=== PATIENT | male | born 1960 | race African-American/Black ===

== ENCOUNTER 2021-07-25 16:38 | Inpatient (IN) | payer OTHER ==
[2021-07-25] MEDS ORDERED: MAG HYDROX/AL HYDROX/SIMETH 30 ML UNIT-DOSE CUP PO PRN (22:38)
[2021-07-25] MEDS ORDERED: MAGNESIUM CITRATE 300 ML BOTTLE PO PRN (22:38)
[2021-07-25] MEDS ORDERED: guaiFENesin 200 MG/10 ML 10 ML UNIT-DOSE CUPS PO PRN (22:38)
[2021-07-25] MEDS ORDERED: P-EPHED 60MG/TRIPROLIDI 2.5MG TABLET PO PRN (22:38)
[2021-07-25] MEDS ORDERED: MAGNESIUM HYDROX 2400MG/30ML ORAL SUSPENSION 30 ML CUP PO PRN (22:38)
[2021-07-25] MEDS ORDERED: ACETAMINOPHEN 325 MG TABLET (FP) PO PRN (22:38)
[2021-07-25] MEDS ORDERED: IBUPROFEN 400 MG TABLET (FP) PO PRN (22:38)
[2021-07-25 22:51] VITALS: BMI 35.1
[2021-07-26] MEDS ORDERED: TUBERCULIN PPD 5 TU/0.1ML VIAL ID ONE (00:26)
[2021-07-26] MEDS: MELATONIN 5 MG TABLETS PO SCH ×2 (00:31→21:08)
[2021-07-26] MEDS ORDERED: METOPROLOL TARTRATE 50 MG TABLET (FP) PO ONE (00:48)
[2021-07-26] MEDS: ALBUTEROL SO4 HFA INHALER IH SCH ×4 (01:57→21:09)
[2021-07-26] MEDS: metFORMIN HCL 500 MG TABLET (FP) PO SCH ×2 (06:17→17:22)
[2021-07-26] MEDS: TAMSULOSIN HCL 0.4 MG CAP PO SCH (08:40)
[2021-07-26] MEDS ORDERED: metFORMIN HCL 500 MG TABLET (FP) PO SCH (10:00)
[2021-07-26] MEDS: LOPERAMIDE HCL 2 MG CAPSULE PO PRN (10:05)
[2021-07-26 10:51] LABS: HEMATOCRIT 43.1 % (35.4-49); HEMOGLOBIN 14.6 GM/dL (11.7-16.9); MCH 31.9 pg (25.7-33.7); MEAN PLT VOLUME 9.3 fl (7.5-11.1); PLATELET COUNT 157 10^3/uL (134-434); RBC 4.59 M/mm3 (4.00-5.60); RDW 15.7 % (11.9-15.9); WHITE BLOOD COUNT 5.6 K/mm3 (4.0-10.0)
[2021-07-26 11:05] LABS: ALBUMIN 3.8 g/dl (3.4-5.0); CALCIUM 8.9 mg/dL (8.5-10.1)
[2021-07-26 11:06] LABS: BLOOD UREA NITROGEN 7.6 mg/dL (7-18)
[2021-07-26 11:09] LABS: CREATININE 1.2 mg/dL (0.55-1.3)
[2021-07-26 11:10] LABS: BILIRUBIN,TOTAL 0.9 mg/dL (0.2-1); TOT PROT 8.4 g/dl (6.4-8.2)
[2021-07-26] MEDS: LOSARTAN POTASSIUM 25 MG TABLET PO SCH (12:12)
[2021-07-26] MEDS: NIFEdipine E.R. 90 MG TABLET PO SCH (12:13)
[2021-07-26] MEDS: PRENATAL VITAMINS W/ FOLIC ACID TABLET (FP) PO SCH (12:13)
[2021-07-26 16:38] LABS: EPI CELLS 4 /uL (0-25.1); HYALINE CASTS 0 /uL (0-3.1); PH,URINE 5.5 (5.0-8.0); URINE APPEARANCE CLEAR; URINE BACTERIA 2 /uL (0-1359); URINE BILIRUBIN NEGATIVE (NEGATIVE); URINE COLOR YELLOW; URINE GLUCOSE (UA) 3+ (NEGATIVE); URINE KETONE TRACE (NEGATIVE); URINE LEUK ESTERASE NEGATIVE (NEGATIVE); URINE NITRITE NEGATIVE (NEGATIVE); URINE PROTEIN 3+ (NEGATIVE); URINE RBC 19 /uL (0-23.9); URINE WBC 3 /uL (0-25.8)
[2021-07-26] MEDS: THIAMINE HCL 100 MG TABLET (FP) PO SCH (21:09)
[2021-07-26] MEDS ORDERED: PATIENT'S OWN MEDICATION (NON-FORMULARY) (Alfuzosin Hcl [Uroxatral] 10 MG Tab.Er.24h) PO SCH (22:00)
[2021-07-27] MEDS: ALBUTEROL SO4 HFA INHALER IH SCH ×4 (02:02→21:34)
[2021-07-27] MEDS: metFORMIN HCL 500 MG TABLET (FP) PO SCH ×2 (06:38→16:31)
[2021-07-27] MEDS: TAMSULOSIN HCL 0.4 MG CAP PO SCH (07:30)
[2021-07-27] MEDS: PRENATAL VITAMINS W/ FOLIC ACID TABLET (FP) PO SCH (09:50)
[2021-07-27] MEDS: NIFEdipine E.R. 90 MG TABLET PO SCH (09:50)
[2021-07-27] MEDS: LOSARTAN POTASSIUM 25 MG TABLET PO SCH (09:50)
[2021-07-27] MEDS ORDERED: FLUoxetine HCL 20 MG CAPSULE PO SCH (10:00)
[2021-07-27] MEDS: FLUoxetine HCL 10 MG CAPSULE PO SCH (10:38)
[2021-07-27] MEDS ORDERED: PT OWN MED DRAWER 7, Y5N ONE ×2 (10:57→11:42)
[2021-07-27] MEDS: LOPERAMIDE HCL 2 MG CAPSULE PO PRN (11:17)
[2021-07-27] MEDS ORDERED: BISMUTH SUBSALICYLATE 262 MG/15 ML BTL PO PRN (14:29)
[2021-07-27] MEDS: INSULIN SLIDING SCALE (NOVOLOG) 1 VIAL SQ SCH (16:33)
[2021-07-27] MEDS ORDERED: INSULIN (NOVOLOG) ASPART 100 UNITS/ML 10ML VIAL ONE (16:42)
[2021-07-27] MEDS: THIAMINE HCL 100 MG TABLET (FP) PO SCH (21:33)
[2021-07-27] MEDS: MELATONIN 5 MG TABLETS PO SCH (21:34)
[2021-07-28] MEDS: ALBUTEROL SO4 HFA INHALER IH SCH ×4 (00:04→20:54)
[2021-07-28] MEDS: metFORMIN HCL 500 MG TABLET (FP) PO SCH ×2 (06:22→16:50)
[2021-07-28] MEDS: INSULIN SLIDING SCALE (NOVOLOG) 1 VIAL SQ SCH ×2 (09:33→16:53)
[2021-07-28] MEDS: NIFEdipine E.R. 90 MG TABLET PO SCH (10:07)
[2021-07-28] MEDS: TAMSULOSIN HCL 0.4 MG CAP PO SCH (10:07)
[2021-07-28] MEDS: FLUoxetine HCL 10 MG CAPSULE PO SCH (10:07)
[2021-07-28] MEDS: PRENATAL VITAMINS W/ FOLIC ACID TABLET (FP) PO SCH (10:07)
[2021-07-28] MEDS: LOSARTAN POTASSIUM 25 MG TABLET PO SCH (10:07)
[2021-07-28] MEDS ORDERED: INSULIN (NOVOLOG) ASPART 100 UNITS/ML 10ML VIAL ONE ×2 (12:05→16:49)
[2021-07-28] MEDS: THIAMINE HCL 100 MG TABLET (FP) PO SCH (22:07)
[2021-07-28] MEDS: MELATONIN 5 MG TABLETS PO SCH (22:07)
[2021-07-29] MEDS: ALBUTEROL SO4 HFA INHALER IH SCH ×4 (02:27→19:55)
[2021-07-29] MEDS: metFORMIN HCL 500 MG TABLET (FP) PO SCH ×2 (06:58→16:45)
[2021-07-29] MEDS ORDERED: INSULIN (NOVOLOG) ASPART 100 UNITS/ML 10ML VIAL ONE ×3 (06:59→16:45)
[2021-07-29] MEDS: INSULIN SLIDING SCALE (NOVOLOG) 1 VIAL SQ SCH ×3 (07:02→16:47)
[2021-07-29] MEDS: TAMSULOSIN HCL 0.4 MG CAP PO SCH (07:34)
[2021-07-29] MEDS: NIFEdipine E.R. 90 MG TABLET PO SCH (09:22)
[2021-07-29] MEDS: LOSARTAN POTASSIUM 25 MG TABLET PO SCH (09:22)
[2021-07-29] MEDS: PRENATAL VITAMINS W/ FOLIC ACID TABLET (FP) PO SCH (09:22)
[2021-07-29] MEDS: FLUoxetine HCL 10 MG CAPSULE PO SCH (09:22)
[2021-07-29 10:07] LABS: SARS-CoV-2 NAA Not Detected (Not Detected)
[2021-07-29] MEDS: THIAMINE HCL 100 MG TABLET (FP) PO SCH (21:35)
[2021-07-29] MEDS: MELATONIN 5 MG TABLETS PO SCH (21:35)
[2021-07-30] MEDS: ALBUTEROL SO4 HFA INHALER IH SCH ×4 (02:06→20:04)
[2021-07-30] MEDS: INSULIN SLIDING SCALE (NOVOLOG) 1 VIAL SQ SCH ×3 (06:34→17:04)
[2021-07-30] MEDS: metFORMIN HCL 500 MG TABLET (FP) PO SCH ×2 (06:34→17:02)
[2021-07-30] MEDS ORDERED: INSULIN (NOVOLOG) ASPART 100 UNITS/ML 10ML VIAL ONE ×3 (07:01→17:01)
[2021-07-30] MEDS: TAMSULOSIN HCL 0.4 MG CAP PO SCH (08:22)
[2021-07-30] MEDS: PRENATAL VITAMINS W/ FOLIC ACID TABLET (FP) PO SCH (10:10)
[2021-07-30] MEDS: FLUoxetine HCL 10 MG CAPSULE PO SCH (10:10)
[2021-07-30] MEDS: LOSARTAN POTASSIUM 25 MG TABLET PO SCH (10:11)
[2021-07-30] MEDS: NIFEdipine E.R. 90 MG TABLET PO SCH (10:11)
[2021-07-30] MEDS: THIAMINE HCL 100 MG TABLET (FP) PO SCH (22:09)
[2021-07-30] MEDS: MELATONIN 5 MG TABLETS PO SCH (22:09)
[2021-07-31] MEDS: ALBUTEROL SO4 HFA INHALER IH SCH ×2 (02:20→06:08)
[2021-07-31] MEDS ORDERED: INSULIN (NOVOLOG) ASPART 100 UNITS/ML 10ML VIAL ONE ×3 (06:05→16:43)
[2021-07-31] MEDS: metFORMIN HCL 500 MG TABLET (FP) PO SCH ×2 (06:08→16:28)
[2021-07-31] MEDS: INSULIN SLIDING SCALE (NOVOLOG) 1 VIAL SQ SCH ×3 (06:08→16:29)
[2021-07-31] MEDS: TAMSULOSIN HCL 0.4 MG CAP PO SCH (07:50)
[2021-07-31] MEDS: LOSARTAN POTASSIUM 25 MG TABLET PO SCH (10:14)
[2021-07-31] MEDS: FLUoxetine HCL 10 MG CAPSULE PO SCH (10:14)
[2021-07-31] MEDS: PRENATAL VITAMINS W/ FOLIC ACID TABLET (FP) PO SCH (10:14)
[2021-07-31] MEDS: NIFEdipine E.R. 90 MG TABLET PO SCH (10:14)
[2021-07-31] MEDS ORDERED: ALBUTEROL SO4 HFA INHALER IH PRN (12:40)
[2021-07-31] MEDS: GABAPENTIN 100 MG CAPSULE PO SCH ×2 (14:55→21:40)
[2021-07-31] MEDS: SIMETHICONE 80 MG TAB.CHEW (FP) PO PRN (14:56)
[2021-07-31] MEDS: MELATONIN 5 MG TABLETS PO SCH (21:40)
[2021-07-31] MEDS: THIAMINE HCL 100 MG TABLET (FP) PO SCH (21:40)
[2021-08-01] MEDS: metFORMIN HCL 500 MG TABLET (FP) PO SCH ×2 (06:26→16:25)
[2021-08-01] MEDS: LOSARTAN POTASSIUM 25 MG TABLET PO SCH (06:26)
[2021-08-01] MEDS: GABAPENTIN 100 MG CAPSULE PO SCH ×3 (06:26→21:10)
[2021-08-01] MEDS: INSULIN SLIDING SCALE (NOVOLOG) 1 VIAL SQ SCH ×3 (07:35→16:28)
[2021-08-01] MEDS: TAMSULOSIN HCL 0.4 MG CAP PO SCH (09:44)
[2021-08-01] MEDS: FLUoxetine HCL 10 MG CAPSULE PO SCH (09:44)
[2021-08-01] MEDS: PRENATAL VITAMINS W/ FOLIC ACID TABLET (FP) PO SCH (09:44)
[2021-08-01] MEDS: NIFEdipine E.R. 90 MG TABLET PO SCH (09:44)
[2021-08-01] MEDS ORDERED: INSULIN (NOVOLOG) ASPART 100 UNITS/ML 10ML VIAL ONE ×2 (12:24→16:49)
[2021-08-01] MEDS: MELATONIN 5 MG TABLETS PO SCH (21:10)
[2021-08-01] MEDS: THIAMINE HCL 100 MG TABLET (FP) PO SCH (21:11)
[2021-08-02] MEDS: LOSARTAN POTASSIUM 25 MG TABLET PO SCH (06:06)
[2021-08-02] MEDS: GABAPENTIN 100 MG CAPSULE PO SCH ×3 (06:06→21:37)
[2021-08-02] MEDS: metFORMIN HCL 500 MG TABLET (FP) PO SCH ×2 (06:07→16:32)
[2021-08-02] MEDS: INSULIN SLIDING SCALE (NOVOLOG) 1 VIAL SQ SCH ×3 (06:09→16:33)
[2021-08-02] MEDS ORDERED: INSULIN (NOVOLOG) ASPART 100 UNITS/ML 10ML VIAL ONE ×2 (07:18→16:35)
[2021-08-02] MEDS: TAMSULOSIN HCL 0.4 MG CAP PO SCH (08:36)
[2021-08-02] MEDS: FLUoxetine HCL 10 MG CAPSULE PO SCH (10:17)
[2021-08-02] MEDS: PRENATAL VITAMINS W/ FOLIC ACID TABLET (FP) PO SCH (10:17)
[2021-08-02] MEDS: NIFEdipine E.R. 90 MG TABLET PO SCH (10:17)
[2021-08-02] MEDS: THIAMINE HCL 100 MG TABLET (FP) PO SCH (21:37)
[2021-08-02] MEDS: MELATONIN 5 MG TABLETS PO SCH (21:37)
[2021-08-03] MEDS: GABAPENTIN 100 MG CAPSULE PO SCH ×3 (06:04→21:01)
[2021-08-03] MEDS: LOSARTAN POTASSIUM 25 MG TABLET PO SCH (06:04)
[2021-08-03] MEDS: metFORMIN HCL 500 MG TABLET (FP) PO SCH ×2 (06:06→16:41)
[2021-08-03] MEDS: INSULIN SLIDING SCALE (NOVOLOG) 1 VIAL SQ SCH ×2 (07:10→16:42)
[2021-08-03] MEDS: TAMSULOSIN HCL 0.4 MG CAP PO SCH (07:43)
[2021-08-03] MEDS ORDERED: INSULIN (NOVOLOG) ASPART 100 UNITS/ML 10ML VIAL ONE ×2 (08:03→16:41)
[2021-08-03] MEDS ORDERED: COLLOIDAL OATMEAL 1 BAR EACH TP PRN (08:30)
[2021-08-03] MEDS: FLUoxetine HCL 10 MG CAPSULE PO SCH (09:53)
[2021-08-03] MEDS: NIFEdipine E.R. 90 MG TABLET PO SCH (09:53)
[2021-08-03] MEDS: PRENATAL VITAMINS W/ FOLIC ACID TABLET (FP) PO SCH (09:53)
[2021-08-03] MEDS: THIAMINE HCL 100 MG TABLET (FP) PO SCH (21:01)
[2021-08-03] MEDS: MELATONIN 5 MG TABLETS PO SCH (21:01)
[2021-08-04] MEDS: LOSARTAN POTASSIUM 25 MG TABLET PO SCH (06:22)
[2021-08-04] MEDS: metFORMIN HCL 500 MG TABLET (FP) PO SCH ×2 (06:22→17:02)
[2021-08-04] MEDS: GABAPENTIN 100 MG CAPSULE PO SCH ×3 (06:22→21:55)
[2021-08-04] MEDS ORDERED: INSULIN (NOVOLOG) ASPART 100 UNITS/ML 10ML VIAL ONE (07:12)
[2021-08-04] MEDS: INSULIN SLIDING SCALE (NOVOLOG) 1 VIAL SQ SCH ×2 (07:31→17:03)
[2021-08-04] MEDS: SIMETHICONE 80 MG TAB.CHEW (FP) PO PRN (07:56)
[2021-08-04] MEDS: PRENATAL VITAMINS W/ FOLIC ACID TABLET (FP) PO SCH (10:12)
[2021-08-04] MEDS: NIFEdipine E.R. 90 MG TABLET PO SCH (10:13)
[2021-08-04] MEDS: TAMSULOSIN HCL 0.4 MG CAP PO SCH (10:13)
[2021-08-04] MEDS: FLUoxetine HCL 10 MG CAPSULE PO SCH (10:13)
[2021-08-04] MEDS: MELATONIN 5 MG TABLETS PO SCH (21:54)
[2021-08-04] MEDS: THIAMINE HCL 100 MG TABLET (FP) PO SCH (21:56)
[2021-08-05] MEDS: LOSARTAN POTASSIUM 25 MG TABLET PO SCH (06:41)
[2021-08-05] MEDS: GABAPENTIN 100 MG CAPSULE PO SCH ×3 (06:41→21:09)
[2021-08-05] MEDS: metFORMIN HCL 500 MG TABLET (FP) PO SCH ×2 (06:41→17:16)
[2021-08-05] MEDS ORDERED: INSULIN (NOVOLOG) ASPART 100 UNITS/ML 10ML VIAL ONE ×2 (07:10→17:17)
[2021-08-05] MEDS: INSULIN SLIDING SCALE (NOVOLOG) 1 VIAL SQ SCH ×2 (07:42→17:19)
[2021-08-05] MEDS: PRENATAL VITAMINS W/ FOLIC ACID TABLET (FP) PO SCH (10:08)
[2021-08-05] MEDS: NIFEdipine E.R. 90 MG TABLET PO SCH (10:09)
[2021-08-05] MEDS: FLUoxetine HCL 10 MG CAPSULE PO SCH (10:09)
[2021-08-05] MEDS: TAMSULOSIN HCL 0.4 MG CAP PO SCH (10:09)
[2021-08-05] MEDS: THIAMINE HCL 100 MG TABLET (FP) PO SCH (21:10)
[2021-08-05] MEDS: MELATONIN 5 MG TABLETS PO SCH (21:10)
[2021-08-06] MEDS: metFORMIN HCL 500 MG TABLET (FP) PO SCH ×2 (06:16→17:01)
[2021-08-06] MEDS: LOSARTAN POTASSIUM 25 MG TABLET PO SCH (06:16)
[2021-08-06] MEDS: GABAPENTIN 100 MG CAPSULE PO SCH ×3 (06:16→21:37)
[2021-08-06] MEDS ORDERED: INSULIN (NOVOLOG) ASPART 100 UNITS/ML 10ML VIAL ONE (06:43)
[2021-08-06] MEDS: INSULIN SLIDING SCALE (NOVOLOG) 1 VIAL SQ SCH ×2 (08:09→17:03)
[2021-08-06] MEDS: PRENATAL VITAMINS W/ FOLIC ACID TABLET (FP) PO SCH (10:05)
[2021-08-06] MEDS: FLUoxetine HCL 10 MG CAPSULE PO SCH (10:06)
[2021-08-06] MEDS: TAMSULOSIN HCL 0.4 MG CAP PO SCH (10:06)
[2021-08-06] MEDS: NIFEdipine E.R. 90 MG TABLET PO SCH (10:06)
[2021-08-06] MEDS: THIAMINE HCL 100 MG TABLET (FP) PO SCH (21:37)
[2021-08-06] MEDS: MELATONIN 5 MG TABLETS PO SCH (21:37)
[2021-08-07] MEDS: GABAPENTIN 100 MG CAPSULE PO SCH ×3 (06:19→21:06)
[2021-08-07] MEDS: metFORMIN HCL 500 MG TABLET (FP) PO SCH ×2 (06:19→16:42)
[2021-08-07] MEDS: INSULIN SLIDING SCALE (NOVOLOG) 1 VIAL SQ SCH ×2 (06:20→16:42)
[2021-08-07] MEDS ORDERED: INSULIN (NOVOLOG) ASPART 100 UNITS/ML 10ML VIAL ONE ×2 (07:06→16:41)
[2021-08-07] MEDS: TAMSULOSIN HCL 0.4 MG CAP PO SCH (07:49)
[2021-08-07] MEDS: LOSARTAN POTASSIUM 25 MG TABLET PO SCH (07:49)
[2021-08-07] MEDS: PRENATAL VITAMINS W/ FOLIC ACID TABLET (FP) PO SCH (10:00)
[2021-08-07] MEDS: NIFEdipine E.R. 90 MG TABLET PO SCH (10:00)
[2021-08-07] MEDS: FLUoxetine HCL 10 MG CAPSULE PO SCH (10:01)
[2021-08-07] MEDS: THIAMINE HCL 100 MG TABLET (FP) PO SCH (21:06)
[2021-08-07] MEDS: MELATONIN 5 MG TABLETS PO SCH (21:06)
[2021-08-08] MEDS: GABAPENTIN 100 MG CAPSULE PO SCH ×3 (06:14→21:27)
[2021-08-08] MEDS: LOSARTAN POTASSIUM 25 MG TABLET PO SCH (06:14)
[2021-08-08] MEDS: metFORMIN HCL 500 MG TABLET (FP) PO SCH ×2 (06:15→16:39)
[2021-08-08] MEDS: INSULIN SLIDING SCALE (NOVOLOG) 1 VIAL SQ SCH ×2 (06:16→16:40)
[2021-08-08] MEDS ORDERED: INSULIN (NOVOLOG) ASPART 100 UNITS/ML 10ML VIAL ONE ×2 (07:02→16:39)
[2021-08-08] MEDS: TAMSULOSIN HCL 0.4 MG CAP PO SCH (07:43)
[2021-08-08] MEDS: PRENATAL VITAMINS W/ FOLIC ACID TABLET (FP) PO SCH (10:12)
[2021-08-08] MEDS: NIFEdipine E.R. 90 MG TABLET PO SCH (10:13)
[2021-08-08] MEDS: FLUoxetine HCL 10 MG CAPSULE PO SCH (10:13)
[2021-08-08] MEDS: MELATONIN 5 MG TABLETS PO SCH (21:28)
[2021-08-08] MEDS: THIAMINE HCL 100 MG TABLET (FP) PO SCH (21:28)
[2021-08-09] MEDS: metFORMIN HCL 500 MG TABLET (FP) PO SCH ×2 (06:10→16:24)
[2021-08-09] MEDS: GABAPENTIN 100 MG CAPSULE PO SCH ×3 (06:10→21:03)
[2021-08-09] MEDS: INSULIN SLIDING SCALE (NOVOLOG) 1 VIAL SQ SCH ×2 (06:10→16:25)
[2021-08-09] MEDS: LOSARTAN POTASSIUM 25 MG TABLET PO SCH (06:10)
[2021-08-09] MEDS: TAMSULOSIN HCL 0.4 MG CAP PO SCH (07:44)
[2021-08-09] MEDS: FLUoxetine HCL 10 MG CAPSULE PO SCH (10:07)
[2021-08-09] MEDS: PRENATAL VITAMINS W/ FOLIC ACID TABLET (FP) PO SCH (10:07)
[2021-08-09] MEDS: NIFEdipine E.R. 90 MG TABLET PO SCH (10:07)
[2021-08-09] MEDS: NALTREXONE HCL 50 MG TABLET PO SCH (14:56)
[2021-08-09] MEDS ORDERED: INSULIN (NOVOLOG) ASPART 100 UNITS/ML 10ML VIAL ONE (16:33)
[2021-08-09] MEDS: THIAMINE HCL 100 MG TABLET (FP) PO SCH (21:03)
[2021-08-09] MEDS: MELATONIN 5 MG TABLETS PO SCH (21:03)
[2021-08-10] MEDS: LOSARTAN POTASSIUM 25 MG TABLET PO SCH (06:06)
[2021-08-10] MEDS: metFORMIN HCL 500 MG TABLET (FP) PO SCH ×2 (06:06→16:33)
[2021-08-10] MEDS: GABAPENTIN 100 MG CAPSULE PO SCH ×3 (06:06→21:33)
[2021-08-10] MEDS: INSULIN SLIDING SCALE (NOVOLOG) 1 VIAL SQ SCH ×2 (06:53→16:34)
[2021-08-10] MEDS ORDERED: INSULIN (NOVOLOG) ASPART 100 UNITS/ML 10ML VIAL ONE (06:55)
[2021-08-10] MEDS: PRENATAL VITAMINS W/ FOLIC ACID TABLET (FP) PO SCH (10:28)
[2021-08-10] MEDS: TAMSULOSIN HCL 0.4 MG CAP PO SCH (10:28)
[2021-08-10] MEDS: NIFEdipine E.R. 90 MG TABLET PO SCH (10:29)
[2021-08-10] MEDS: NALTREXONE HCL 50 MG TABLET PO SCH (10:29)
[2021-08-10] MEDS: FLUoxetine HCL 10 MG CAPSULE PO SCH (10:29)
[2021-08-10] MEDS: MELATONIN 5 MG TABLETS PO SCH (21:34)
[2021-08-10] MEDS: THIAMINE HCL 100 MG TABLET (FP) PO SCH (21:34)
[2021-08-11] MEDS: GABAPENTIN 100 MG CAPSULE PO SCH ×3 (05:58→21:07)
[2021-08-11] MEDS: LOSARTAN POTASSIUM 25 MG TABLET PO SCH (05:58)
[2021-08-11] MEDS: metFORMIN HCL 500 MG TABLET (FP) PO SCH ×2 (07:00→17:13)
[2021-08-11] MEDS: INSULIN SLIDING SCALE (NOVOLOG) 1 VIAL SQ SCH ×2 (08:36→17:15)
[2021-08-11] MEDS: PRENATAL VITAMINS W/ FOLIC ACID TABLET (FP) PO SCH (10:24)
[2021-08-11] MEDS: FLUoxetine HCL 10 MG CAPSULE PO SCH (10:24)
[2021-08-11] MEDS: NIFEdipine E.R. 90 MG TABLET PO SCH (10:24)
[2021-08-11] MEDS: TAMSULOSIN HCL 0.4 MG CAP PO SCH (10:24)
[2021-08-11] MEDS ORDERED: NALTREXONE MICROSPHERES (VIVITROL) 380 MG DISP.SYRIN IM ONE (11:00)
[2021-08-11] MEDS: MELATONIN 5 MG TABLETS PO SCH (21:07)
[2021-08-11] MEDS: THIAMINE HCL 100 MG TABLET (FP) PO SCH (21:07)
[2021-08-12] MEDS: LOSARTAN POTASSIUM 25 MG TABLET PO SCH (06:11)
[2021-08-12] MEDS: GABAPENTIN 100 MG CAPSULE PO SCH ×3 (06:11→21:26)
[2021-08-12] MEDS: metFORMIN HCL 500 MG TABLET (FP) PO SCH ×2 (06:12→16:33)
[2021-08-12] MEDS: INSULIN SLIDING SCALE (NOVOLOG) 1 VIAL SQ SCH ×2 (06:14→16:35)
[2021-08-12] MEDS ORDERED: INSULIN (NOVOLOG) ASPART 100 UNITS/ML 10ML VIAL ONE (07:15)
[2021-08-12] MEDS: TAMSULOSIN HCL 0.4 MG CAP PO SCH (07:32)
[2021-08-12] MEDS: FLUoxetine HCL 10 MG CAPSULE PO SCH (10:11)
[2021-08-12] MEDS: PRENATAL VITAMINS W/ FOLIC ACID TABLET (FP) PO SCH (10:11)
[2021-08-12] MEDS: NIFEdipine E.R. 90 MG TABLET PO SCH (10:11)
[2021-08-12] MEDS: THIAMINE HCL 100 MG TABLET (FP) PO SCH (21:26)
[2021-08-12] MEDS: MELATONIN 5 MG TABLETS PO SCH (21:26)
[2021-08-13] MEDS: LOSARTAN POTASSIUM 25 MG TABLET PO SCH (06:18)
[2021-08-13] MEDS: GABAPENTIN 100 MG CAPSULE PO SCH ×3 (06:18→21:05)
[2021-08-13] MEDS: metFORMIN HCL 500 MG TABLET (FP) PO SCH ×2 (06:19→16:33)
[2021-08-13] MEDS: INSULIN SLIDING SCALE (NOVOLOG) 1 VIAL SQ SCH ×2 (06:19→16:35)
[2021-08-13] MEDS: TAMSULOSIN HCL 0.4 MG CAP PO SCH (07:31)
[2021-08-13] MEDS: NIFEdipine E.R. 90 MG TABLET PO SCH (10:13)
[2021-08-13] MEDS: PRENATAL VITAMINS W/ FOLIC ACID TABLET (FP) PO SCH (10:13)
[2021-08-13] MEDS: FLUoxetine HCL 10 MG CAPSULE PO SCH (10:13)
[2021-08-13] MEDS ORDERED: INSULIN (NOVOLOG) ASPART 100 UNITS/ML 10ML VIAL ONE (16:36)
[2021-08-13] MEDS: THIAMINE HCL 100 MG TABLET (FP) PO SCH (21:05)
[2021-08-13] MEDS: MELATONIN 5 MG TABLETS PO SCH (21:05)
[2021-08-14] MEDS: GABAPENTIN 100 MG CAPSULE PO SCH (06:21)
[2021-08-14] MEDS: LOSARTAN POTASSIUM 25 MG TABLET PO SCH (06:21)
[2021-08-14] MEDS: metFORMIN HCL 500 MG TABLET (FP) PO SCH (06:22)
[2021-08-14] MEDS: INSULIN SLIDING SCALE (NOVOLOG) 1 VIAL SQ SCH (06:22)
[2021-08-14 07:10] VITALS: BP 148/99; PULSE 94; TEMP 97.7
[2021-08-14] MEDS: TAMSULOSIN HCL 0.4 MG CAP PO SCH (07:51)
[2021-08-14] MEDS: FLUoxetine HCL 10 MG CAPSULE PO SCH (09:30)
[2021-08-14] MEDS: NIFEdipine E.R. 90 MG TABLET PO SCH (09:30)
[2021-08-14] MEDS: PRENATAL VITAMINS W/ FOLIC ACID TABLET (FP) PO SCH (09:30)
[2021-08-14] MEDS ORDERED: PT OWN MED DRAWER 7, Y5N ONE (09:35)
== END 2021-08-14 09:50 | disposition home or self-care (01) | DRG 895 ==
LOC: YASAS 16:38 → Y3W 19:26
PROVIDERS: ADMIT Allergy & Immunology; ATTEND Allergy & Immunology
PROC: HZ42ZZZ Group Counseling for Substance Abuse Treatment, Cognitive-Behavioral (ICD-10-PCS; principal; 2021-07-25)
DX: F10.20 Alcohol dependence, uncomplicated (principal); F10.24 Alcohol dependence with alcohol-induced mood disorder; F41.8 Other specified anxiety disorders; F32.A Depression, unspecified; I10 Essential (primary) hypertension; E11.42 Type 2 diabetes mellitus with diabetic polyneuropathy; Z79.84 Long term (current) use of oral hypoglycemic drugs; E78.5 Hyperlipidemia, unspecified; J45.909 Unspecified asthma, uncomplicated; M17.12 Unilateral primary osteoarthritis, left knee; Z96.642 Presence of left artificial hip joint; Z85.46 Personal history of malignant neoplasm of prostate
CPT/HCPCS: 36415; 80053; 81003; 82962; 85027; 86780; C9803; J2315; U0003; U0005